=== PATIENT | female | born 1965 | race Caucasian/White ===

== ENCOUNTER 2019-12-23 22:36 | Emergency (ER) | payer OTHER, BC ==
[~2019-12-23 22:36] MED LIST: AZITHROMYCIN250 MG PO; CIPROFLOXACN250 MG PO; CIPROFLOXACN500 MG PO; DILAUDID 2MG2 MG/TA1 PO; KEFLEX250 MG PO; LEVOTHYROXIN50 MCG PO; LEVOTHYROXIN88 MC1 PO; LISINOP/HCTZ1 TA2 PO; METFORMIN500 MG PO; NORCO1 TA1 PO; OMEPRAZOLE20 MG PO; POTASSIMIN75 MG PO; PROAIR HFA IN; PYRIDIUM200 MG PO; SYMBICORT 80-4.5MCG IN; SYMBICORT1 AE1 IN
[2019-12-23] MEDS ORDERED: LISINOPRIL20 M1 PO (22:54)
[2019-12-23] MEDS ORDERED: FARXIGA5 MG (22:54)
[2019-12-23] MEDS ORDERED: VICTOZA18 MG/3 ML SC (22:55)
[2019-12-23] MEDS ORDERED: NAPROXEN500 MG PO (23:41)
[2019-12-23 23:56] VITALS: BP 166/92
== END 2019-12-24 00:02 | disposition home or self-care (01) | DRG 563 ==
LOC: ED 22:36
DX: S83.92XA Sprain of unspecified site of left knee, initial encounter (principal); S93.402A Sprain of unspecified ligament of left ankle, initial encounter; E11.9 Type 2 diabetes mellitus without complications; I10 Essential (primary) hypertension; Z79.84 Long term (current) use of oral hypoglycemic drugs; W01.0XXA Fall on same level from slipping, tripping and stumbling without subsequent striking against object, initial encounter

== ENCOUNTER 2021-11-04 12:28 | Emergency (ER) | payer BC ==
[2021-11-04] VITALS (9 sets, daily range): BP systolic 91–121; BP diastolic 44–58
[~2021-11-04] VITALS: Ht 157.5 cm; Wt 95.7 kg
[~2021-11-04 12:28] MED LIST changes: +FARXIGA5 MG; +LISINOPRIL20 M1 PO; +NAPROXEN500 MG PO; +VICTOZA18 MG/3 ML SC
[2021-11-04] MEDS ORDERED: ZPAK PO (12:35)
[2021-11-04 13:12] LABS: URINE BLOOD DIPSTICK TRACE-INTACT (NEGATIVE); URINE COLOR YELLOW; URINE GLUCOSE - DIPSTICK >=1000 mg/dL (NEGATIVE); URINE KETONE NEGATIVE (NEGATIVE); URINE PROTEIN - DIPSTICK 30 mg/dL (NEG-TRACE); URINE UROBILINOGEN - DIPSTICK 0.2 E.U./dL (0.2)
[2021-11-04 13:13] LABS: IMMATURE GRANULOCYTES 1.2 % (0.0-5.0); MEAN CELL VOLUME 86.6 fL CALC (80.0-100.0); MEAN CORPUSCULAR HGB 29.3 pG CALC (26.0-32.0); MEAN CORPUSCULAR HGB CONC 33.9 g/dL CAL (32.0-36.0); NEUT# 5.07 thou/uL (2.00-7.15); RED BLOOD COUNT 5.59 mill/uL (4.20-5.60); RED CELL DISTRI WIDTH 13.2 % (11.5-15.5)
[2021-11-04 13:26] LABS: URINE BILIRUBIN - DIPSTICK SMALL (NEGATIVE); URINE LEUK ESTERASE SMALL (NEGATIVE); URINE NITRITE - DIPSTICK NEGATIVE (Negative)
[2021-11-04 13:29] LABS: ALBUMIN 4.4 g/dL (3.2-5.0); ALKALINE PHOSPHATASE 111 u/l (38-126); AMYLASE 64 u/l (30-110); BUN 27 mg/dL (7-17); BUN/CREATININE RATIO 19 (12-20 (CALC)); CHLORIDE 102 mmol/l (95-108); CREATININE 1.4 mg/dL (0.5-1.0); GFR 39 ML/MIN (>=60 (CALC)); GFR FOR AFR.AMER. 47 ML/MIN (>=60 (CALC)); LIPASE 263 u/l (23-300); MAGNESIUM 1.6 mg/dL (1.6-2.3); SGOT/AST 32 u/l (14-36); SODIUM 136 mmol/l (137-146); TOTAL PROTEIN 7.8 g/dL (6.3-8.2)
[2021-11-04 13:30] LABS: ACT PARTIAL THROMBO TIME 24.6 SECONDS (20.0-32.5); PROTHROMBIN TIME 10.4 SECONDS (9.0-12.5); URINE BACTERIA FEW hpf; URINE RBC 0-2 RBC/hpf (0-5)
[2021-11-04 13:36] LABS: HEMATOCRIT 48.4 % (37.0-47.0); HEMOGLOBIN 16.4 g/dl (12.0-16.0)
[2021-11-04 13:37] LABS: ANION GAP 19 (6-22 (CALC)); BILIRUBIN, TOTAL 1.2 mg/dL (0.0-1.4); CARBON DIOXIDE 18 mmol/l (22-30); POTASSIUM 3.2 mmol/l (3.5-5.1)
[2021-11-04] MEDS ORDERED: ZOFRAN4 MG/TAB PO (16:12)
[2021-11-04] MEDS ORDERED: HYDROCO/APAP1 TA9 PO (16:13)
== END 2021-11-04 16:29 | disposition home or self-care (01) | DRG 392 ==
LOC: ED 12:28
DX: A08.2 Adenoviral enteritis (principal); E86.0 Dehydration; E87.6 Hypokalemia; I10 Essential (primary) hypertension; E11.9 Type 2 diabetes mellitus without complications; R82.71 Bacteriuria
CPT/HCPCS: J2060; Q9967

== ENCOUNTER 2022-02-23 11:45 | Emergency (ER) | payer BC ==
[~2022-02-23] VITALS: Ht 157.5 cm; Wt 95.0 kg
[~2022-02-23 11:45] MED LIST changes: +HYDROCO/APAP1 TA9 PO; +ZOFRAN4 MG/TAB PO; +ZPAK PO
[2022-02-23] MEDS ORDERED: OZEMPIC2 MG/1.5 M (12:40)
[2022-02-23] MEDS ORDERED: SYMBICORT1 AE1 IN (12:40)
[2022-02-23] MEDS ORDERED: LEVOTHYROXIN50 MC1 PO (12:41)
[2022-02-23] MEDS ORDERED: ATORVASTATIN CA20 MG PO (12:41)
[2022-02-23 12:58] VITALS: BP 174/82
[2022-02-23 12:58] LABS: URINE BILIRUBIN - DIPSTICK NEGATIVE (NEGATIVE); URINE BLOOD DIPSTICK LARGE (NEGATIVE); URINE COLOR YELLOW; URINE GLUCOSE - DIPSTICK >=1000 mg/dL (NEGATIVE); URINE KETONE 15 mg/dL (NEGATIVE); URINE LEUK ESTERASE TRACE (NEGATIVE); URINE PH 6.5 (4.5-8.0); URINE PROTEIN - DIPSTICK 100 mg/dL (NEG-TRACE); URINE SPECIFIC GRAVITY 1.015; URINE UROBILINOGEN - DIPSTICK 0.2 E.U./dL (0.2)
[2022-02-23 13:00] VITALS: BP 148/81
[2022-02-23 13:02] LABS: URINE NITRITE - DIPSTICK NEGATIVE (Negative)
[2022-02-23 13:05] LABS: URINE RBC >100 RBC/hpf (0-5); URINE SQUAMOUS EPITHELIAL CELL FEW EPI/hpf (0-FEW)
[2022-02-23] MEDS ORDERED: OMNI-PAC300 MG PO (13:13)
[2022-02-23 13:15] VITALS: BP 163/83
== END 2022-02-23 13:23 | disposition home or self-care (01) | DRG 690 ==
LOC: ED 11:45
PROVIDERS: Family Medicine
DX: N39.0 Urinary tract infection, site not specified (principal); I10 Essential (primary) hypertension; E11.9 Type 2 diabetes mellitus without complications; E66.9 Obesity, unspecified; B96.20 Unspecified Escherichia coli [E. coli] as the cause of diseases classified elsewhere

== ENCOUNTER 2022-04-25 05:32 | Emergency (ER) | payer BC ==
[~2022-04-25] VITALS: Ht 157.5 cm; Wt 95.0 kg
[~2022-04-25 05:32] MED LIST changes: +ATORVASTATIN CA20 MG PO; +LEVOTHYROXIN50 MC1 PO; +OMNI-PAC300 MG PO; +OZEMPIC2 MG/1.5 M
[2022-04-25] MEDS ORDERED: OMEPRAZOLE20 MG PO (05:49)
[2022-04-25 06:20] LABS: URINE BILIRUBIN - DIPSTICK NEGATIVE (NEGATIVE); URINE BLOOD DIPSTICK LARGE (NEGATIVE); URINE COLOR YELLOW; URINE GLUCOSE - DIPSTICK >=1000 mg/dL (NEGATIVE); URINE KETONE NEGATIVE (NEGATIVE); URINE LEUK ESTERASE TRACE (NEGATIVE); URINE NITRITE - DIPSTICK NEGATIVE (Negative); URINE PROTEIN - DIPSTICK TRACE mg/dL (NEG-TRACE); URINE UROBILINOGEN - DIPSTICK 0.2 E.U./dL (0.2)
[2022-04-25 06:26] LABS: URINE RBC 50-100 RBC/hpf (0-5); URINE SQUAMOUS EPITHELIAL CELL FEW EPI/hpf (0-FEW); URINE WBC 0-2 WBC/hpf (0-5)
[2022-04-25] MEDS ORDERED: BACTRIM DS1 TAB PO (06:30)
[2022-04-25 06:53] VITALS: BP 154/82
== END 2022-04-25 06:40 | disposition home or self-care (01) | DRG 690 ==
LOC: ED 05:32
PROVIDERS: Family Medicine
DX: N39.0 Urinary tract infection, site not specified (principal); E11.9 Type 2 diabetes mellitus without complications; I10 Essential (primary) hypertension

== ENCOUNTER 2024-07-24 15:36 | Emergency (ER) | payer OTHER, BC ==
[~2024-07-24] VITALS: Ht 157.5 cm; Wt 95.0 kg
[~2024-07-24 15:36] MED LIST changes: +BACTRIM DS1 TAB PO
[2024-07-24] MEDS ORDERED: MOTRIN400 MG/TAB PO (17:18)
[2024-07-24 17:23] VITALS: BP 157/99
== END 2024-07-24 17:29 | disposition home or self-care (01) | DRG 556 ==
LOC: ED 15:36
DX: M79.642 Pain in left hand (principal); Y35.811A Legal intervention involving manhandling, law enforcement official injured, initial encounter; Y99.0 Civilian activity done for income or pay

== ENCOUNTER 2024-09-12 14:33 | Emergency (ER) | payer OTHER, BC ==
[~2024-09-12] VITALS: Ht 157.5 cm; Wt 88.6 kg
[~2024-09-12 14:33] MED LIST changes: +MOTRIN400 MG/TAB PO
[2024-09-12] MEDS ORDERED: ORPHENADRINE CITRATE 30 MG/ML AMP IM ONE (15:50)
[2024-09-12] MEDS ORDERED: KETOROLAC TROMETHAMINE 30 MG/ML SDV IM ONE (15:50)
[2024-09-12] MEDS ORDERED: NAPROXEN500 MG PO ×2 (17:35→17:44)
[2024-09-12] MEDS ORDERED: METHOCARBAMOL500 MG PO (17:35)
[2024-09-12 17:48] VITALS: BP 182/106
== END 2024-09-12 17:52 | disposition home or self-care (01) | DRG 563 ==
LOC: ED 14:33
DX: S46.911A Strain of unspecified muscle, fascia and tendon at shoulder and upper arm level, right arm, initial encounter (principal); I10 Essential (primary) hypertension; E11.9 Type 2 diabetes mellitus without complications; W01.198A Fall on same level from slipping, tripping and stumbling with subsequent striking against other object, initial encounter
CPT/HCPCS: J2360